=== PATIENT | male | born 1995 | race African-American/Black ===

== ENCOUNTER 2021-01-06 18:26 | Emergency (ER) | payer OTHER ==
[~2021-01-06] VITALS: Ht 190.5 cm; Wt 100.0 kg
[~2021-01-06 18:26] MED LIST: CLEOCIN300 MG PO; NAPROSYN500 MG PO; NO HOME MEDS; ULTRAM50 M1 PO
[2021-01-06 19:49] LABS: IMMATURE GRANULOCYTES 0.3 % (0.0-5.0); MEAN CELL VOLUME 88.7 fL CALC (80.0-100.0); MEAN CORPUSCULAR HGB CONC 32.7 g/dL CAL (32.0-36.0); NEUT# 6.37 thou/uL (1.82-7.42); RED BLOOD COUNT 5.21 mill/uL (4.70-6.10); RED CELL DISTRI WIDTH 13.4 % (11.5-15.5)
[2021-01-06 19:54] LABS: HEMATOCRIT 46.2 % (39.0-50.0); HEMOGLOBIN 15.1 g/dl (14.0-18.0)
[2021-01-06 20:23] LABS: ALBUMIN 4.9 g/dL (3.2-5.0); ANION GAP 17 (6-22 (CALC)); BILIRUBIN, TOTAL 0.7 mg/dL (0.0-1.4); BUN 13 mg/dL (9-20); BUN/CREATININE RATIO 14 (12-20 (CALC)); CARBON DIOXIDE 28 mmol/l (22-30); CHLORIDE 97 mmol/l (95-108); CREATININE 0.9 mg/dL (0.7-1.3); GFR > 60 ML/MIN (>=60 (CALC)); GFR FOR AFR.AMER. > 60 ML/MIN (>=60 (CALC)); POTASSIUM 4.4 mmol/l (3.5-5.1); SGOT/AST 39 u/l (17-59); SODIUM 138 mmol/l (137-146); TOTAL PROTEIN 8.8 g/dL (6.3-8.2)
[2021-01-06 20:24] LABS: ALKALINE PHOSPHATASE 81 u/l (38-126)
[2021-01-06 20:35] LABS: MYOGLOBIN 36 ng/mL (0 - 121)
[2021-01-06 20:53] LABS: TSH, 3RD GENERATION 1.93 uIU/mL (0.47 - 4.68)
[2021-01-06] MEDS ORDERED: HYDROXYZINE HYD25 MG PO (21:11)
[2021-01-06 21:22] VITALS: BP 160/90
== END 2021-01-06 21:22 | disposition home or self-care (01) | DRG 880 ==
LOC: ED 18:26
PROVIDERS: Family Medicine
DX: F41.9 Anxiety disorder, unspecified (principal)